=== PATIENT | male | born 1995 | race Caucasian/White ===

== ENCOUNTER 2018-02-22 00:21 | Emergency (ER) | payer BC, OTHER ==
[~2018-02-22] VITALS: Ht 180.3 cm; Wt 90.7 kg
[2018-02-22 01:00] VITALS: BP 103/74
[2018-02-22] MEDS ORDERED: LIDOCAINE 1% INJ 20 ML 20 ML VIAL ONE (01:29)
--- NOTE | 2018-02-22 06:34 | Diagnostic Imaging Report ---
PROCEDURE: CT head, face, and cervical spine without contrast. TECHNIQUE: Multiple contiguous axial images were obtained through the head, neck, and facial bones without the use of intravenous contrast. Sagittal and coronal reformations through the cervical spine and facial bones were also performed. Indication: Fall with facial injury and neck pain. Comparison: None. Discussion: Head/face: No intracranial hemorrhage, mass, midline shift, or hydrocephalus. The ventricles and sulci are normal size and configuration for age. The orbits, paranasal sinuses, mastoid air cells, and calvarium are unremarkable. There is no facial fracture. The facial soft tissues are unremarkable. The temporomandibular joints are normally located. Cervical spine: No acute fracture, subluxation, or other osseous abnormality identified. No significant degenerative disease. Alignment is anatomic. Soft tissues are unremarkable. Impression: 1. Negative CT of the head and face. 2. Negative cervical spine CT. 3. Agree with preliminary report. Dictated by: Dictated on workstation # [id number]
== END 2018-02-22 01:30 | disposition left against medical advice (07) ==
LOC: ER 00:22
DX: S01.81XA Laceration without foreign body of other part of head, initial encounter (principal); F17.210 Nicotine dependence, cigarettes, uncomplicated; W10.8XXA Fall (on) (from) other stairs and steps, initial encounter; W22.09XA Striking against other stationary object, initial encounter
CPT/HCPCS: 70450; 70486; 72125; 99282